=== PATIENT | female | born 1945 ===

== ENCOUNTER 2017-12-09 11:00 | Inpatient (IN) | payer OTHER ==
[~2017-12-09] VITALS: Ht 157.5 cm; Wt 69.9 kg
[2017-12-09] MEDS ORDERED: LISINOPRIL40 MG PO (12:17)
[2017-12-09] MEDS ORDERED: AVAPRO300 MG PO (12:17)
[2017-12-09] MEDS ORDERED: ISOSORBIDE DINI30 MG PO (12:18)
[2017-12-18] MEDS ORDERED: PERCOCET 5-3251 EACH PO (07:12)
[2017-12-18] MEDS ORDERED: INTESTINEX680 M1 PO (07:12)
== END 2017-12-18 10:58 | disposition home or self-care (01) | DRG 331 ==
LOC: ADM 11:00 → EDSTATUS 11:00 → O/R 12-15 06:00 → SURH 12-15 06:00
PROVIDERS: Surgery
PROC: 0DJD8ZZ Inspection of Lower Intestinal Tract, Via Natural or Artificial Opening Endoscopic (ICD-10-PCS; 2017-12-15)
PROC: 0DTE4ZZ Resection of Large Intestine, Percutaneous Endoscopic Approach (ICD-10-PCS; principal; 2017-12-15 13:15)
DX: K57.32 Diverticulitis of large intestine without perforation or abscess without bleeding (principal); I10 Essential (primary) hypertension